=== PATIENT | female | born 1970 | race Caucasian/White ===

== ENCOUNTER 2016-05-14 22:42 | Emergency (ER) | payer OTHER ==
[~2016-05-14] VITALS: Ht 162.5 cm; Wt 62.6 kg
[~2016-05-14 22:42] MED LIST: ACULAR 3 ML3 M1 OPH; ANAPROX DS550 MG PO; ANTIVERT/2525 M1 PO; ATARAX25 MG PO; CATAFLAM50 MG PO; CIPROFLOXACIN500 MG PO; FLEXERIL5 MG PO; IBU800 MG PO; KEFLEX500 MG PO; MOTRIN800 MG PO; Motrin,Rufen800 MG PO; NAPROSYN250 MG PO; NAPROSYN500 MG PO; NKHM; NORCO 325 MG-51 TAB PO; PREDNICOT10 MG PO; PREDNISONE10 MG PO; PREDNISONE20 MG PO; TOBREX OPHTH S2.5 ML OPH; VICODIN 5/500 505 MG PO
[2016-05-14 23:01] VITALS: BP 132/89
[2016-05-15] MEDS ORDERED: ANAPROX DS550 MG PO (00:09)
== END 2016-05-15 00:24 | disposition home or self-care (01) ==
LOC: ED 22:42
DX: H57.8 Other specified disorders of eye and adnexa (principal); H57.12 Ocular pain, left eye; Z88.6 Allergy status to analgesic agent

== ENCOUNTER 2017-07-27 00:10 | Inpatient (IN) | payer OTHER ==
[~2017-07-27] VITALS: Ht 162.6 cm; Wt 64.0 kg
[2017-07-27] VITALS (7 sets, daily range): BP systolic 109–130; BP diastolic 54–81
--- NOTE | ~2017-07-27 | CON ---
[place], [place] REPORT OF CONSULTATION NAME: SAULO OGDEN UNIT #: [id number] ROOM: 412 DOCTOR: PREM SANCHEZJOSE BIRTHDATE: [birth year] DOS: 08/03/2017 HISTORY OF PRESENT ILLNESS: This is a 47-year-old patient who has presented with chief complaint of relentless nausea, vomiting and nonspecific epigastric abdominal pain. The patient underwent endoscopic evaluation, was found to have distal esophageal ulcers and she had gastritis. Antral biopsy was done, H. pylori was not present in the tissue. Distal esophageal ulcers were secondary to reflux and mild gastritis. She was on Protonix; however, she continued to be expressing being nauseated and has not been able to eat. We have discussed this matter with Dr. Ankit Noland on rounds this morning and decided to start her on Reglan 10 mg a.m. and p.m. and due to the fact that she has not had a bowel movement for 7 days, Dulcolax suppository was ordered. We understand that the patient has been on morphine sulfate for expression of pain. On the other hand, she has had biliary scan, which has been with slight delay in dye travelling to gallbladder, otherwise no acute pathology identified. Lab results reviewed. CT scan of the head was obtained. No central causes of nausea was associated with the findings since the study was normal. Electrolytes, potassium of 3.4 has to be addressed with IV potassium that was undertaken and potassium, however, dropped to 2.9 today and this is being addressed. PAST MEDICAL HISTORY: History of enterocolitis and history gastroesophageal reflux. PAST SURGICAL HISTORY: Tubal ligation. SOCIAL HISTORY: Past smoker, rare alcohol consumer. CURRENT MEDICATIONS: Medication list has been at home. Naproxen that has been discontinued and that should be the culprit for her upper GI findings. REVIEW OF SYSTEMS: HEENT: Denies double vision, blurred vision. RESPIRATORY: Denies shortness of breath. CARDIOVASCULAR: Denies chest pain. DIGESTIVE SYSTEM: Constipation, nausea, vomiting, anorexic still. PHYSICAL EXAMINATION: VITAL SIGNS: Stable, nontoxic patient. HEENT: Benign. NECK: Supple No thyromegaly. CHEST: Symmetric anatomy, equal expansion. No wheeze, no rhonchi. HEART: Normal sinus rhythm. No gallop, no murmur. ABDOMEN: Soft. No hepato-organomegaly. Bowel sounds present. No pulsatile mass. EXTREMITIES: No cyanosis, no pedal edema. NEUROLOGIC: Alert, oriented to time, place, person. IMPRESSION: Distal esophageal ulcers, reflux, gastritis. The patient is on Protonix. Naproxen has been removed, which was a part of her home medication. Her HIDA scan has been normal. CT scan records ____ thickening of the colon and [place], [place] REPORT OF CONSULTATION NAME: SAULO OGDEN UNIT #: [id number] ROOM: [facility] DOCTOR: PREM SANCHEZ,JOSE BIRTHDATE: [birth year] consider enterocolitis possibility, but she does not have diarrhea. She does not have signs and symptoms associated. PLAN AND DISCUSSION: We are going to continue with Reglan 10 mg b.i.d., Protonix 40 mg daily, liquid diet, ambulating, avoiding frequency of morphine sulfate and adjustment to perhaps q. 6 hours and only p.r.n., so that we can reduce narcotics from her and Dulcolax suppository, ambulation and clinical reassessment. Gallbladder sludge has been also appreciated in the patient. Workup in progress . If discharged by tomorrow, then recommending to stay on Reglan at least 10 mg a day for the next 3-4 days until her symptoms of nausea is resolved and continuously to stay on Protonix or any substitute PPI and advising to abstain from naproxen intake in future. JOSE AMARO MD CM:CONSTR:REPORT OF CONSULTATION 1428 08/04/17 0206 interface
--- NOTE | ~2017-07-27 | O ---
[place], [place] OPERATIVE NOTE NAME: SAULO OGDEN UNIT #: [id number] ROOM: 412 DOCTOR: JOSE AMARO MD BIRTHDATE: [birth year] DOS: 08/01/2017 GASTROENDOSCOPIC REPORT The patient is a 47-year-old patient who presented with chief complaint of lower abdominal pain, epigastric distress. She was admitted to the ER. Lactic acid was 1.0. BUN and creatinine, liver function tests and lipase, LFTs, all within normal limit. White blood cell was 10, H and H of [address] scan of the abdomen and pelvis was obtained, somewhat limited x-ray, multiple fluid filled small bowel loops, thickening of the descending colon. Possible enterocolitis was suggested. Hemoglobin A1c 5.3. Blood cultures were negative. No growth. OPERATION PERFORMED: Today's procedure part of investigation is panendoscopy plus biopsy. PREMEDICATION: Versed and Diprivan. SCOPE: Olympus forward-viewing gastroscope Q10 video. REPORT: After putting the patient in left lateral position and application of lubricant to the scope, the scope was introduced. Thereafter, under direct visualization, advanced through the length of esophagus without difficulty. Distal esophageal ulcers secondary to reflux and lower third of the esophagus was experienced. Gastric pouch was entered. Gastritis was seen. Antral biopsy obtained. Duodenal bulb, second and third part within normal limits. The patient extubated and tolerated the procedure well. IMPRESSION: Distal esophageal ulcers secondary to reflux, mild gastritis, status post biopsy. PLAN: Protonix 40 mg 1 day and further reassessment of this patient can be as addressed as outpatient. CT scan negative. Labs on records negative. Clinical reassessment. We are going to feed her regular diet to see how she feels. [place], [place] OPERATIVE NOTE NAME: SAULO OGDEN UNIT #: [id number] ROOM: 412 DOCTOR: JOSE AMARO MD BIRTHDATE: [birth year] JOSE AMARO MD CM:OPRECORD:OPERATIVE NOTE 1311 [id number] JOSE AMARO MD 08/01/17 1352 interface
[2017-07-27 00:59] LABS: ALBUMIN 3.6 gm/dl (3.1-4.5); ALKALINE PHOSPHATASE 39 U/L (45-117); BUN 18 mg/dl (7-24); CHLORIDE 105 mmol/L (98-107); LIPASE 252 U/L (73-393); POTASSIUM 3.9 mmol/L (3.5-5.1); SGOT/AST 25 IU/L (3-35); SGPT/ALT 22 U/L (12-78); SODIUM 140 mmol/L (136-145); TOTAL PROTEIN 7.3 gm/dL (6.4-8.2)
[2017-07-27 01:02] LABS: BASO # 0.1 10*3/uL (0.0-0.1); BASO % 0.5 % (0.0-1.0); EOS # 0.2 10*3/uL (0.0-0.4); EOS % 2.1 % (1.0-4.0); HEMATOCRIT 39.2 % (37.0-47.0); HEMOGLOBIN 12.9 g/dl (12.0-16.0); LYMPH # 2.2 10*3/uL (1.3-4.4); LYMPH % 21.7 % (27.0-41.0); MEAN CELL VOLUME 88.1 fl (81.0-99.0); MEAN CORPUSCULAR HGB CONC 32.9 g/dl (33.0-37.0); MEAN PLATELET VOLUME 11.3 fl (9.6-12.3); MONO # 0.7 10*3/uL (0.1-1.0); MONO % 6.6 % (3.0-9.0); NEUT # 7.1 10*3/uL (2.3-7.9); NEUT % 68.5 % (47.0-73.0); PLATELET COUNT AUTOMATED 279 10*3/uL (130-400); RED BLOOD COUNT 4.45 10*6/uL (4.10-5.10); RED CELL DISTRI WIDTH 13.1 % (0-14.5); WHITE BLOOD COUNT 10.3 10*3/uL (4.8-10.8)
[2017-07-27 03:49] LABS: BASO % 0.4 % (0.0-1.0); EOS # 0.1 10*3/uL (0.0-0.4); EOS % 0.8 % (1.0-4.0); HEMATOCRIT 37.7 % (37.0-47.0); HEMOGLOBIN 12.4 g/dl (12.0-16.0); LYMPH % 18.1 % (27.0-41.0); MEAN CELL VOLUME 87.9 fl (81.0-99.0); MEAN CORPUSCULAR HGB 28.9 pg (27.0-31.0); MEAN CORPUSCULAR HGB CONC 32.9 g/dl (33.0-37.0); MEAN PLATELET VOLUME 11.1 fl (9.6-12.3); MONO # 0.6 10*3/uL (0.1-1.0); MONO % 5.1 % (3.0-9.0); NEUT # 8.3 10*3/uL (2.3-7.9); NEUT % 75.3 % (47.0-73.0); PLATELET COUNT AUTOMATED 256 10*3/uL (130-400); RED BLOOD COUNT 4.29 10*6/uL (4.10-5.10); RED CELL DISTRI WIDTH 13.3 % (0-14.5)
[2017-07-27 04:03] LABS: ACT PARTIAL THROMBO TIME 23.2 SECONDS (20.8-31.5); INTERNATIONAL NORM RATIO 0.9 (2.0-3.5)
[2017-07-27 04:05] LABS: ALBUMIN 3.6 gm/dl (3.1-4.5); ALKALINE PHOSPHATASE 31 U/L (45-117); BUN 17 mg/dl (7-24); CHLORIDE 103 mmol/L (98-107); CHOLESTEROL 180 mg/dL (<200); CREATININE 0.71 mg/dL (0.55-1.02); HDL CHOLESTEROL 61 mg/dl (40-60); LDL CHOLESTEROL 108 mg/dL (9-159); PHOSPHOROUS 3.2 mg/dL (2.5-4.9); POTASSIUM 3.8 mmol/L (3.5-5.1); SGOT/AST 17 IU/L (3-35); SGPT/ALT 18 U/L (12-78); SODIUM 138 mmol/L (136-145); TOTAL PROTEIN 6.9 gm/dL (6.4-8.2); TRIGLYCERIDES 54 mg/dl (<150); VLDL CHOLESTEROL 11 mg/dL (6-40)
[2017-07-27 07:51] LABS: VITAMIN D, 25-HYDROXY 24.3 ng/mL (30-100)
[2017-07-27 14:00] LABS: BILIRUBIN NEGATIVE (NEGATIVE); BLOOD TRACE-INTACT (NEGATIVE); CLARITY CLEAR (CLEAR); COLOR YELLOW (YELLOW); GLUCOSE NEGATIVE (NEGATIVE); KETONE NEGATIVE (NEGATIVE); LEUKO ESTERASE NEGATIVE (NEGATIVE); NITRITE NEGATIVE (NEGATIVE); PH 5.5 (5.0-9.0); SPECIFIC GRAVITY 1.015 (1.005-1.030); UROBILINOGEN 0.2 E.U./dl (0.2-1.0)
[2017-07-27 14:15] LABS: BACTERIA TRACE; RBC 0-2 rbc/hpf (0-2); WBC 0-2 wbc/hpf (0-5)
[2017-07-28] VITALS: BP 116/63
[2017-07-28 05:46] LABS: BASO % 0.7 % (0.0-1.0); EOS # 0.2 10*3/uL (0.0-0.4); EOS % 2.9 % (1.0-4.0); HEMATOCRIT 35.1 % (37.0-47.0); HEMOGLOBIN 11.2 g/dl (12.0-16.0); LYMPH # 2.5 10*3/uL (1.3-4.4); LYMPH % 44.9 % (27.0-41.0); MEAN CELL VOLUME 89.8 fl (81.0-99.0); MEAN CORPUSCULAR HGB 28.6 pg (27.0-31.0); MEAN CORPUSCULAR HGB CONC 31.9 g/dl (33.0-37.0); MEAN PLATELET VOLUME 10.9 fl (9.6-12.3); MONO # 0.4 10*3/uL (0.1-1.0); MONO % 7.1 % (3.0-9.0); NEUT # 2.4 10*3/uL (2.3-7.9); NEUT % 44.2 % (47.0-73.0); PLATELET COUNT AUTOMATED 204 10*3/uL (130-400); RED BLOOD COUNT 3.91 10*6/uL (4.10-5.10); RED CELL DISTRI WIDTH 13.2 % (0-14.5); WHITE BLOOD COUNT 5.5 10*3/uL (4.8-10.8)
[2017-07-28 06:05] LABS: BUN 10 mg/dl (7-24); CHLORIDE 110 mmol/L (98-107); CREATININE 0.63 mg/dL (0.55-1.02); POTASSIUM 3.8 mmol/L (3.5-5.1); SODIUM 142 mmol/L (136-145)
[2017-07-28 08:00] VITALS: BP 110/53
[2017-07-28 12:00] VITALS: BP 111/55
[2017-07-28 16:00] VITALS: BP 128/82
[2017-07-28 20:00] VITALS: BP 131/77
[2017-07-29] VITALS: BP 110/69
[2017-07-29 08:00] VITALS: BP 113/61
[2017-07-29 12:00] VITALS: BP 107/58
[2017-07-29 16:00] VITALS: BP 123/65
[2017-07-29 20:00] VITALS: BP 149/62
[2017-07-30] VITALS: BP 118/56
[2017-07-30 06:53] LABS: BASO % 0.4 % (0.0-1.0); EOS # 0.1 10*3/uL (0.0-0.4); EOS % 0.6 % (1.0-4.0); HEMATOCRIT 35.3 % (37.0-47.0); HEMOGLOBIN 11.7 g/dl (12.0-16.0); LYMPH % 21.1 % (27.0-41.0); MEAN CELL VOLUME 87.4 fl (81.0-99.0); MEAN CORPUSCULAR HGB CONC 33.1 g/dl (33.0-37.0); MONO # 0.6 10*3/uL (0.1-1.0); MONO % 6.5 % (3.0-9.0); NEUT # 6.6 10*3/uL (2.3-7.9); NEUT % 71.1 % (47.0-73.0); PLATELET COUNT AUTOMATED 220 10*3/uL (130-400); RED BLOOD COUNT 4.04 10*6/uL (4.10-5.10); RED CELL DISTRI WIDTH 12.9 % (0-14.5); WHITE BLOOD COUNT 9.3 10*3/uL (4.8-10.8)
[2017-07-30 07:28] LABS: BUN 10 mg/dl (7-24); CHLORIDE 108 mmol/L (98-107); CREATININE 0.62 mg/dL (0.55-1.02); POTASSIUM 3.5 mmol/L (3.5-5.1); SODIUM 140 mmol/L (136-145)
[2017-07-30 08:00] VITALS: BP 150/80
[2017-07-30 12:00] VITALS: BP 142/80
[2017-07-30 16:00] VITALS: BP 121/65
[2017-07-30 20:00] VITALS: BP 145/73
[2017-07-31] VITALS: BP 138/70
[2017-07-31 08:00] VITALS: BP 130/76
[2017-07-31 12:00] VITALS: BP 146/77
[2017-07-31 16:00] VITALS: BP 153/82
[2017-07-31 20:00] VITALS: BP 140/70
[2017-07-31 21:09] VITALS: BP 140/70
[2017-08-01] VITALS (8 sets, daily range): BP systolic 137–163; BP diastolic 77–92
[2017-08-01 06:44] LABS: BASO # 0.1 10*3/uL (0.0-0.1); BASO % 0.5 % (0.0-1.0); EOS # 0.1 10*3/uL (0.0-0.4); EOS % 1.4 % (1.0-4.0); HEMOGLOBIN 11.6 g/dl (12.0-16.0); LYMPH # 1.6 10*3/uL (1.3-4.4); LYMPH % 16.9 % (27.0-41.0); MEAN CELL VOLUME 85.9 fl (81.0-99.0); MEAN CORPUSCULAR HGB 29.3 pg (27.0-31.0); MEAN CORPUSCULAR HGB CONC 34.1 g/dl (33.0-37.0); MEAN PLATELET VOLUME 11.6 fl (9.6-12.3); MONO # 0.9 10*3/uL (0.1-1.0); MONO % 9.1 % (3.0-9.0); NEUT # 6.9 10*3/uL (2.3-7.9); NEUT % 71.8 % (47.0-73.0); PLATELET COUNT AUTOMATED 191 10*3/uL (130-400); RED BLOOD COUNT 3.96 10*6/uL (4.10-5.10); WHITE BLOOD COUNT 9.6 10*3/uL (4.8-10.8)
[2017-08-01 06:48] LABS: BUN 3 mg/dl (7-24); CHLORIDE 106 mmol/L (98-107); CREATININE 0.52 mg/dL (0.55-1.02); POTASSIUM 3.3 mmol/L (3.5-5.1); SODIUM 139 mmol/L (136-145)
[2017-08-02] VITALS: BP 139/86
[2017-08-02 08:00] VITALS: BP 158/84
[2017-08-02 09:23] LABS: ALBUMIN 2.7 gm/dl (3.1-4.5); ALKALINE PHOSPHATASE 26 U/L (45-117); BUN 1 mg/dl (7-24); CHLORIDE 104 mmol/L (98-107); POTASSIUM 3.4 mmol/L (3.5-5.1); SGOT/AST 28 IU/L (3-35); SGPT/ALT 41 U/L (12-78); SODIUM 136 mmol/L (136-145); TOTAL PROTEIN 5.4 gm/dL (6.4-8.2)
[2017-08-02 09:25] LABS: CREATININE 0.46 mg/dL (0.55-1.02)
[2017-08-02 12:00] VITALS: BP 160/88
[2017-08-02 17:50] VITALS: BP 172/92
[2017-08-02 20:00] VITALS: BP 152/88
[2017-08-03] VITALS: BP 129/74
[2017-08-03 07:37] LABS: BUN 1 mg/dl (7-24); CHLORIDE 104 mmol/L (98-107); CREATININE 0.55 mg/dL (0.55-1.02); POTASSIUM 2.9 mmol/L (3.5-5.1); SODIUM 141 mmol/L (136-145)
[2017-08-03 08:00] VITALS: BP 160/92
[2017-08-03 12:00] VITALS: BP 150/90
[2017-08-03 16:00] VITALS: BP 154/94
[2017-08-03 20:00] VITALS: BP 110/78
[2017-08-04] VITALS: BP 140/82
[2017-08-04 07:25] LABS: BASO # 0.1 10*3/uL (0.0-0.1); BASO % 0.6 % (0.0-1.0); EOS # 0.6 10*3/uL (0.0-0.4); EOS % 5.6 % (1.0-4.0); HEMOGLOBIN 11.4 g/dl (12.0-16.0); LYMPH # 2.3 10*3/uL (1.3-4.4); LYMPH % 23.9 % (27.0-41.0); MEAN CELL VOLUME 86.3 fl (81.0-99.0); MEAN CORPUSCULAR HGB 28.9 pg (27.0-31.0); MEAN CORPUSCULAR HGB CONC 33.5 g/dl (33.0-37.0); MEAN PLATELET VOLUME 11.7 fl (9.6-12.3); MONO # 0.8 10*3/uL (0.1-1.0); MONO % 8.2 % (3.0-9.0); NEUT % 61.3 % (47.0-73.0); PLATELET COUNT AUTOMATED 217 10*3/uL (130-400); RED BLOOD COUNT 3.94 10*6/uL (4.10-5.10); RED CELL DISTRI WIDTH 13.8 % (0-14.5); WHITE BLOOD COUNT 9.8 10*3/uL (4.8-10.8)
[2017-08-04 07:45] LABS: BUN 5 mg/dl (7-24); CHLORIDE 108 mmol/L (98-107); CREATININE 0.65 mg/dL (0.55-1.02); POTASSIUM 3.6 mmol/L (3.5-5.1); SODIUM 143 mmol/L (136-145)
[2017-08-04 08:00] VITALS: BP 160/84
[2017-08-04 12:00] VITALS: BP 128/71
[2017-08-04 16:00] VITALS: BP 134/84
[2017-08-04 20:00] VITALS: BP 133/86
[2017-08-05] VITALS: BP 148/82
[2017-08-05 07:23] LABS: ALBUMIN 2.7 gm/dl (3.1-4.5); ALKALINE PHOSPHATASE 22 U/L (45-117); BUN 6 mg/dl (7-24); CHLORIDE 102 mmol/L (98-107); CREATININE 0.63 mg/dL (0.55-1.02); POTASSIUM 3.8 mmol/L (3.5-5.1); SGOT/AST 14 IU/L (3-35); SGPT/ALT 24 U/L (12-78); SODIUM 138 mmol/L (136-145); TOTAL PROTEIN 5.4 gm/dL (6.4-8.2)
[2017-08-05 08:00] VITALS: BP 140/82
[2017-08-05] MEDS ORDERED: VITAMIN D-32000 UNIT PO (10:18)
[2017-08-05] MEDS ORDERED: METOCLOPRAM5 MG/1 ML PO (10:18)
[2017-08-05] MEDS ORDERED: ZOFRAN 4 MG ED2 TAB PO (10:18)
== END 2017-08-05 11:45 | disposition home or self-care (01) | DRG 392 ==
LOC: ED 00:10 → EDHOLD 02:51 → 4E 02:51
PROVIDERS: Emergency Medicine Emergency Medical Services; Internal Medicine; Internal Medicine Nephrology; Student in an Organized Health Care Education/Training Program
PROC: 0DB68ZX Excision of Stomach, Via Natural or Artificial Opening Endoscopic, Diagnostic (ICD-10-PCS; principal; 2017-08-01)
DX: K52.9 Noninfective gastroenteritis and colitis, unspecified (principal); K22.10 Ulcer of esophagus without bleeding; R73.9 Hyperglycemia, unspecified; K21.0 Gastro-esophageal reflux disease with esophagitis; K29.70 Gastritis, unspecified, without bleeding; E66.3 Overweight; E55.9 Vitamin D deficiency, unspecified; Z68.24 Body mass index [BMI] 24.0-24.9, adult; Z88.6 Allergy status to analgesic agent; Z98.51 Tubal ligation status; Z87.891 Personal history of nicotine dependence; Z83.3 Family history of diabetes mellitus

== ENCOUNTER → 2017-08-08 | Outpatient (CLI) | payer OTHER ==
[~2017-08-08] MED LIST changes: +METOCLOPRAM5 MG/1 ML PO; +VITAMIN D-32000 UNIT PO; +ZOFRAN 4 MG ED2 TAB PO
== END | disposition home or self-care (01) ==
LOC: RESCLI 01:32
DX: Z09 Encounter for follow-up examination after completed treatment for conditions other than malignant neoplasm (principal); Z12.31 Encounter for screening mammogram for malignant neoplasm of breast; E55.9 Vitamin D deficiency, unspecified; R11.2 Nausea with vomiting, unspecified; R60.0 Localized edema; Z76.89 Persons encountering health services in other specified circumstances; Z87.891 Personal history of nicotine dependence

== ENCOUNTER → 2017-08-21 | Outpatient (CLI) | payer OTHER | END | disposition home or self-care (01) | LOC: MAMMO 08-16 08:40 | DX: Z12.31 Encounter for screening mammogram for malignant neoplasm of breast (principal) ==

== ENCOUNTER → 2017-09-05 | Outpatient (CLI) | payer OTHER | END | disposition home or self-care (01) | LOC: RESCLI 00:26 | DX: K29.70 Gastritis, unspecified, without bleeding (principal); E55.9 Vitamin D deficiency, unspecified; R11.2 Nausea with vomiting, unspecified; K52.9 Noninfective gastroenteritis and colitis, unspecified; K59.00 Constipation, unspecified; R00.1 Bradycardia, unspecified ==

== ENCOUNTER → 2017-09-26 | Day surgery (SDC) | payer OTHER ==
[~2017-09-26] VITALS: Ht 162.5 cm; Wt 62.1 kg
[~2017-09-26] MED LIST changes: +DULCOLAX STOOL100 M1 PO; +MIRALAX POWDER255 G1 PO; +PANTOPRAZOLE SO40 MG PO
--- NOTE | ~2017-09-26 | O ---
[place], [place] OPERATIVE NOTE NAME: SAULO OGDEN UNIT #: [id number] ROOM: DOCTOR: JOSE AMARO MD BIRTHDATE: [birth year] DOS: 09/26/2017 INDICATIONS: The patient is a 47-year-old patient who was presented with chief complaint of abdominal pain, ambiguous, some change in bowel habits. PAST MEDICAL HISTORY: Associated gastritis. FAMILY HISTORY: Cousin with colonic carcinoma. ALLERGIES: No known medication. SOCIAL HISTORY: Nonsmoker, nonalcohol consumer. PAST SURGICAL HISTORY: Tubal ligation and EGD. PROCEDURE: Today's procedure part of investigation is colonoscopy. PREMEDICATION: Propofol. SCOPE: Olympus folding colonoscope 10L video. REPORT: After putting the patient in left lateral position and application of lubricant to rectal pouch and digital examination, scope was introduced; thereafter, under direct visualization, advanced through the length of colon without difficulty. However, there were some technical issues regarding retention of the stool redundancy of colon and extreme tortuosity of colon, However, all of this overcame with appropriate management. Diverticulosis of sigmoid colon was identified. Base of the cecum explored, appendiceal orifice identified. Air was suctioned out. The patient was extubated from ascending, transverse, descending colon, tolerated procedure well. IMPRESSION: Tortuosity of colon. Retention of stool. Redundancy of colon. Diverticulosis. PLAN: High fiber diet. ACTIVITY: Ad judith. FOLLOWUP: Routinely with you in office. Follow-up colonoscopy in 10 years unless patient has symptoms for which follow-up should be sooner. [place], [place] OPERATIVE NOTE NAME: SAULO OGDEN UNIT #: [id number] ROOM: DOCTOR: JOSE AMARO MD BIRTHDATE: [birth year] JOSE AMARO MD CM:OPRECORD:OPERATIVE NOTE 0817 0839 JOSE AMARO MD 10/08/17 1739 interface
[2017-09-26 07:03] VITALS: BP 124/76
[2017-09-26 08:08] VITALS: BP 99/59
[2017-09-26 08:23] VITALS: BP 123/72
[2017-09-26 08:38] VITALS: BP 118/68
== END | disposition home or self-care (01) ==
LOC: SDC 09-20 14:45
DX: K57.30 Diverticulosis of large intestine without perforation or abscess without bleeding (principal); K63.89 Other specified diseases of intestine; Z80.0 Family history of malignant neoplasm of digestive organs; Z98.51 Tubal ligation status; Z79.899 Other long term (current) drug therapy; Z87.891 Personal history of nicotine dependence; Z88.8 Allergy status to other drugs, medicaments and biological substances

== ENCOUNTER → 2017-10-18 | Outpatient (CLI) | payer OTHER | END | disposition home or self-care (01) | LOC: RESCLI 07:57 | DX: E55.9 Vitamin D deficiency, unspecified (principal); R11.2 Nausea with vomiting, unspecified; K25.9 Gastric ulcer, unspecified as acute or chronic, without hemorrhage or perforation; K29.70 Gastritis, unspecified, without bleeding; K59.00 Constipation, unspecified; N63.0 Unspecified lump in unspecified breast; F10.21 Alcohol dependence, in remission; Z87.891 Personal history of nicotine dependence; Z79.899 Other long term (current) drug therapy ==

== ENCOUNTER → 2017-10-24 | Outpatient (CLI) | payer OTHER | END | disposition home or self-care (01) | LOC: US 14:00 | DX: N60.02 Solitary cyst of left breast (principal); N60.01 Solitary cyst of right breast ==

== ENCOUNTER 2017-12-28 14:09 | Inpatient (IN) | payer OTHER ==
[~2017-12-28] VITALS: Ht 162.6 cm; Wt 61.2 kg
--- NOTE | ~2017-12-28 | O ---
[place], [place] OPERATIVE NOTE NAME: SAULO OGDEN [facility] #: [id number] UNIT #: [id number] ROOM: 504 DOCTOR: SEDRICK MCGEE MD BIRTHDATE: [birth year] DOS: 12/29/2017 PREOPERATIVE DIAGNOSIS: Acute appendicitis. POSTOPERATIVE DIAGNOSIS: Acute appendicitis. PROCEDURE: Laparoscopic appendectomy. SURGEON: Sedrick Mcgee MD TOWEL WEAVER: DESIRE. ANESTHESIA: General with endotracheal intubation. INDICATIONS: This is a 47-year-old lady admitted with right lower quadrant pain and a CAT scan that showed appendicitis. It was decided to take the patient to the operating room for the above-mentioned procedure. The procedure and its complications were explained to the patient in detail preoperatively. Complications that were discussed included but were not limited to bleeding, infection, hematoma/seroma/abscess formation, prolonged postoperative pain, damage to lying vital structures and incisional hernia formation. She agreed to proceed. DESCRIPTION OF PROCEDURE: After identifying the patient, the patient was brought to the operating suite and laid in the supine position. After induction of general anesthesia, timeout procedure was called and the left upper extremity was tucked to the patient's side. A Faust catheter was placed as well. The parts were then painted and draped in the usual sterile fashion. An incision was made below the umbilicus in a transverse fashion. The skin and the subcutaneous tissue were incised. The fascia was incised and 2 stay sutures with 0 Vicryl were taken on either side. A 12 mm Dante port was introduced under direct vision and a pneumoperitoneum was created. Under direct vision, a left lower quadrant incision of 10 mm and a 5 mm incision was made in the suprapubic region and appropriate size ports were introduced. The patient was placed in Trendelenburg, right side up position. The cecum and the appendix were identified. The appendix was found to be acutely inflamed. It was grasped with the help of an Endo Erin forceps and dissected away from surrounding structures with blunt and sharp dissection. Thereafter, the mesoappendix and the appendix itself was stapled across with the help of Endo-RHONDA vascular stapler. The specimen was then placed in an EndoCatch bag and removed from the peritoneal cavity and sent for histopathological diagnosis. Hemostasis was confirmed, and saline was used for irrigation. After the saline was sucked away, the appendicular stump was visualized and there was no bleeding seen. At this point, the suprapubic and the left lower quadrant ports were removed under direct vision and there was no bleeding seen. The umbilical port was also removed and the stay sutures were tied together and an additional 0 Vicryl stitch was taken to close the fascia. Thereafter, the edges of the skin were approximated with the help of 4-0 Vicryl in a subcuticular running fashion. There were no complications. Dr. Sedrick Mcgee, the attending surgeon, was present throughout the operating case. The patient tolerated the procedure well and was [place], [place] OPERATIVE NOTE NAME: SAULO OGDEN UNIT #: [id number] ROOM: [facility] DOCTOR: SEDRICK MCGEE MD BIRTHDATE: [birth year] extubated uneventfully and brought back to the recovery room in a stable fashion. Sedrick Mcgee MD CM:OPRECORD:OPERATIVE NOTE 0913 0946 SEDRICK MCGEE MD 12/29/17 0944 interface
[2017-12-28 14:09] VITALS: BP 118/76
[2017-12-28 14:53] LABS: ALBUMIN 3.7 gm/dl (3.1-4.5); ALKALINE PHOSPHATASE 36 U/L (45-117); BUN 18 mg/dl (7-24); CHLORIDE 105 mmol/L (98-107); CREATININE 0.93 mg/dL (0.55-1.02); LIPASE 124 U/L (73-393); POTASSIUM 3.5 mmol/L (3.5-5.1); SGOT/AST 14 IU/L (3-35); SGPT/ALT 17 U/L (12-78); SODIUM 138 mmol/L (136-145); TOTAL PROTEIN 7.1 gm/dL (6.4-8.2)
[2017-12-28 15:06] LABS: BASO % 0.3 % (0.0-1.0); EOS % 0.4 % (1.0-4.0); HEMATOCRIT 34.6 % (37.0-47.0); HEMOGLOBIN 11.4 g/dl (12.0-16.0); LYMPH # 1.7 10*3/uL (1.3-4.4); LYMPH % 15.9 % (27.0-41.0); MEAN CELL VOLUME 87.6 fl (81.0-99.0); MEAN CORPUSCULAR HGB 28.9 pg (27.0-31.0); MEAN CORPUSCULAR HGB CONC 32.9 g/dl (33.0-37.0); MEAN PLATELET VOLUME 10.6 fl (9.6-12.3); MONO # 0.7 10*3/uL (0.1-1.0); MONO % 6.5 % (3.0-9.0); NEUT % 76.7 % (47.0-73.0); PLATELET COUNT AUTOMATED 220 10*3/uL (130-400); RED BLOOD COUNT 3.95 10*6/uL (4.10-5.10); RED CELL DISTRI WIDTH 13.1 % (0-14.5); WHITE BLOOD COUNT 10.5 10*3/uL (4.8-10.8)
[2017-12-28 16:36] LABS: BILIRUBIN NEGATIVE (NEGATIVE); BLOOD TRACE-INTACT (NEGATIVE); CLARITY CLEAR (CLEAR); COLOR YELLOW (YELLOW); GLUCOSE NEGATIVE (NEGATIVE); KETONE NEGATIVE (NEGATIVE); LEUKO ESTERASE NEGATIVE (NEGATIVE); NITRITE NEGATIVE (NEGATIVE); PH 5.5 (5.0-9.0); SPECIFIC GRAVITY <= 1.005 (1.005-1.030); UROBILINOGEN 0.2 E.U./dl (0.2-1.0)
[2017-12-28 16:40] VITALS: BP 113/72
[2017-12-28 17:07] LABS: BACTERIA TRACE; EPITHELIAL CELLS TNTC; MUCOUS 1+; RBC 0-2 rbc/hpf (0-2); WBC 0-2 wbc/hpf (0-5)
[2017-12-28 17:44] VITALS: BP 120/78
[2017-12-28 18:10] VITALS: BP 123/66
[2017-12-28] MEDS ORDERED: CALCIUM CARBON600 M4 PO (18:25)
[2017-12-28] MEDS ORDERED: CARAFATE1 GM/10 ML PO (18:25)
[2017-12-28 20:00] VITALS: BP 114/69
[2017-12-29] VITALS (8 sets, daily range): BP systolic 100–120; BP diastolic 63–75
[2017-12-29 06:25] LABS: BASO % 0.3 % (0.0-1.0); EOS # 0.1 10*3/uL (0.0-0.4); HEMATOCRIT 35.1 % (37.0-47.0); HEMOGLOBIN 11.1 g/dl (12.0-16.0); LYMPH # 1.6 10*3/uL (1.3-4.4); LYMPH % 13.3 % (27.0-41.0); MEAN CORPUSCULAR HGB 28.5 pg (27.0-31.0); MEAN CORPUSCULAR HGB CONC 31.6 g/dl (33.0-37.0); MEAN PLATELET VOLUME 11.6 fl (9.6-12.3); MONO # 0.5 10*3/uL (0.1-1.0); MONO % 4.6 % (3.0-9.0); NEUT # 9.5 10*3/uL (2.3-7.9); NEUT % 80.4 % (47.0-73.0); PLATELET COUNT AUTOMATED 184 10*3/uL (130-400); RED CELL DISTRI WIDTH 13.3 % (0-14.5); WHITE BLOOD COUNT 11.9 10*3/uL (4.8-10.8)
[2017-12-29 06:53] LABS: BUN 15 mg/dl (7-24); CHLORIDE 111 mmol/L (98-107); POTASSIUM 3.3 mmol/L (3.5-5.1); SODIUM 143 mmol/L (136-145)
== END 2017-12-29 15:45 | disposition home or self-care (01) | DRG 343 ==
LOC: ED 14:09 → 5E 16:23 → EDHOLD 16:23 → 5E 18:04
PROVIDERS: Internal Medicine; Nurse Practitioner Family
PROC: 0DTJ4ZZ Resection of Appendix, Percutaneous Endoscopic Approach (ICD-10-PCS; principal; 2017-12-29)
DX: K35.80 Unspecified acute appendicitis (principal); D50.9 Iron deficiency anemia, unspecified; R00.0 Tachycardia, unspecified; K27.9 Peptic ulcer, site unspecified, unspecified as acute or chronic, without hemorrhage or perforation; E87.6 Hypokalemia; Z87.891 Personal history of nicotine dependence; Z87.11 Personal history of peptic ulcer disease; Z82.49 Family history of ischemic heart disease and other diseases of the circulatory system; Z98.51 Tubal ligation status; Z88.6 Allergy status to analgesic agent; Z88.8 Allergy status to other drugs, medicaments and biological substances; Z84.89 Family history of other specified conditions; Z79.899 Other long term (current) drug therapy; Z83.3 Family history of diabetes mellitus

== ENCOUNTER 2018-04-14 | Emergency (ER) | payer OTHER ==
[~2018-04-14] MED LIST changes: +CALCIUM CARBON600 M4 PO; +CARAFATE1 GM/10 ML PO
[2018-04-14] MEDS ORDERED: MEDROL DOSEPAK4 MG PO (17:04)
== END 2018-04-14 17:35 | disposition home or self-care (01) ==
DX: T63.441A Toxic effect of venom of bees, accidental (unintentional), initial encounter (principal); R60.0 Localized edema; Z88.6 Allergy status to analgesic agent; Z79.899 Other long term (current) drug therapy; Z90.49 Acquired absence of other specified parts of digestive tract; Z87.891 Personal history of nicotine dependence; Y92.89 Other specified places as the place of occurrence of the external cause

== ENCOUNTER 2019-03-29 06:26 | Emergency (ER) | payer OTHER ==
[~2019-03-29] VITALS: Ht 162.5 cm; Wt 68.0 kg
[2019-03-29 06:26] VITALS: BP 124/84
[~2019-03-29 06:26] MED LIST changes: +MEDROL DOSEPAK4 MG PO
[2019-03-29 07:05] LABS: BASO # 0.1 10*3/uL (0.0-0.1); BASO % 0.7 % (0.0-1.0); EOS # 0.1 10*3/uL (0.0-0.4); EOS % 1.7 % (1.0-4.0); HEMATOCRIT 36.9 % (37.0-47.0); HEMOGLOBIN 12.3 g/dl (12.0-16.0); LYMPH # 3.8 10*3/uL (1.3-4.4); MEAN CELL VOLUME 89.1 fl (81.0-99.0); MEAN CORPUSCULAR HGB 29.7 pg (27.0-31.0); MEAN CORPUSCULAR HGB CONC 33.3 g/dl (33.0-37.0); MONO # 0.5 10*3/uL (0.1-1.0); MONO % 5.9 % (3.0-9.0); NEUT # 3.6 10*3/uL (2.3-7.9); NEUT % 44.6 % (47.0-73.0); PLATELET COUNT AUTOMATED 262 10*3/uL (130-400); RED BLOOD COUNT 4.14 10*6/uL (4.10-5.10); RED CELL DISTRI WIDTH 13.1 % (0-14.5); WHITE BLOOD COUNT 8.1 10*3/uL (4.8-10.8)
[2019-03-29] MEDS ORDERED: KEFLEX500 M1 PO (08:06)
== END 2019-03-29 08:39 | disposition home or self-care (01) ==
LOC: ED 06:26
PROVIDERS: Emergency Medicine Emergency Medical Services
DX: L03.113 Cellulitis of right upper limb (principal); Z88.6 Allergy status to analgesic agent; Z79.899 Other long term (current) drug therapy; Z87.891 Personal history of nicotine dependence

== ENCOUNTER 2019-06-15 11:17 | Emergency (ER) | payer OTHER ==
[~2019-06-15] VITALS: Ht 162.5 cm; Wt 68.0 kg
[~2019-06-15 11:17] MED LIST changes: +KEFLEX500 M1 PO
[2019-06-15 11:21] VITALS: BP 146/92
[2019-06-15] MEDS ORDERED: KENALOG 0.1%80 GM T (11:30)
[2019-06-15] MEDS ORDERED: CLARITIN10 MG PO (11:30)
== END 2019-06-15 11:31 | disposition home or self-care (01) ==
LOC: ED 11:17
DX: L30.9 Dermatitis, unspecified (principal); Z88.6 Allergy status to analgesic agent; Z79.899 Other long term (current) drug therapy; Z87.891 Personal history of nicotine dependence

== ENCOUNTER 2019-12-10 20:49 | Emergency (ER) | payer OTHER ==
[~2019-12-10] VITALS: Ht 162.5 cm; Wt 64.0 kg
[~2019-12-10 20:49] MED LIST changes: +CLARITIN10 MG PO; +KENALOG 0.1%80 GM T
[2019-12-10 21:10] LABS: BILIRUBIN NEGATIVE; BLOOD NEGATIVE (NEGATIVE); CLARITY CLEAR (CLEAR); COLOR YELLOW (YELLOW); GLUCOSE NEGATIVE; KETONE NEGATIVE; LEUKO ESTERASE TRACE (NEGATIVE); NITRITE NEGATIVE (NEGATIVE); SPECIFIC GRAVITY 1.025 (1.001-1.030)
[2019-12-10 21:15] LABS: BACTERIA 1+; MUCOUS TRACE; RBC 0-2 rbc/hpf (0-2)
[2019-12-10 21:32] LABS: BASO # 0.1 10*3/uL (0.0-0.1); BASO % 0.8 % (0.0-1.0); EOS # 0.1 10*3/uL (0.0-0.4); EOS % 1.7 % (1.0-4.0); HEMATOCRIT 39.3 % (37.0-47.0); LYMPH # 2.8 10*3/uL (1.3-4.4); LYMPH % 39.3 % (27.0-41.0); MEAN CELL VOLUME 87.9 fl (81.0-99.0); MEAN CORPUSCULAR HGB 28.9 pg (27.0-31.0); MEAN CORPUSCULAR HGB CONC 32.8 g/dl (33.0-37.0); MEAN PLATELET VOLUME 10.8 fl (9.6-12.3); MONO # 0.5 10*3/uL (0.1-1.0); MONO % 6.6 % (3.0-9.0); NEUT # 3.7 10*3/uL (2.3-7.9); NEUT % 51.5 % (47.0-73.0); PLATELET COUNT AUTOMATED 279 10*3/uL (130-400); RED BLOOD COUNT 4.47 10*6/uL (4.10-5.10); RED CELL DISTRI WIDTH 12.9 % (0-14.5); WHITE BLOOD COUNT 7.2 10*3/uL (4.8-10.8)
[2019-12-10 21:47] LABS: ALBUMIN 3.6 gm/dl (3.1-4.5); ALKALINE PHOSPHATASE 34 U/L (45-117); BUN 10 mg/dl (7-24); CHLORIDE 106 mmol/L (98-107); CREATININE 0.82 mg/dL (0.55-1.02); LIPASE 125 U/L (73-393); POTASSIUM 3.3 mmol/L (3.5-5.1); SGOT/AST 13 IU/L (3-35); SGPT/ALT 20 U/L (12-78); SODIUM 141 mmol/L (136-145); TOTAL PROTEIN 7.2 gm/dL (6.4-8.2)
[2019-12-10 21:48] VITALS: BP 115/78
[2019-12-10] MEDS ORDERED: MIRALAX POWDER17 G1 PO (23:51)
[2019-12-10] MEDS ORDERED: PRILOSEC20 M1 PO (23:51)
== END 2019-12-11 00:23 | disposition home or self-care (01) ==
LOC: ED 20:49
PROVIDERS: Physician Assistant
DX: K29.70 Gastritis, unspecified, without bleeding (principal); K59.00 Constipation, unspecified; R10.12 Left upper quadrant pain; Z87.891 Personal history of nicotine dependence; Z98.51 Tubal ligation status; Z90.49 Acquired absence of other specified parts of digestive tract; Z79.899 Other long term (current) drug therapy; Z88.5 Allergy status to narcotic agent; Z88.6 Allergy status to analgesic agent; Z87.11 Personal history of peptic ulcer disease

== ENCOUNTER 2020-11-21 19:07 | Emergency (ER) | payer OTHER ==
[~2020-11-21 19:07] MED LIST changes: +MIRALAX POWDER17 G1 PO; +PRILOSEC20 M1 PO
[2020-11-21 19:16] VITALS: BP 146/98
[2020-11-21] MEDS ORDERED: MEDROL DOSEPAK4 MG PO (19:42)
== END 2020-11-21 20:41 | disposition home or self-care (01) ==
LOC: ED 19:07
DX: T63.441A Toxic effect of venom of bees, accidental (unintentional), initial encounter (principal); M79.89 Other specified soft tissue disorders; Z91.030 Bee allergy status; Z88.6 Allergy status to analgesic agent; Z79.899 Other long term (current) drug therapy; Z79.2 Long term (current) use of antibiotics; Z98.51 Tubal ligation status; Z87.891 Personal history of nicotine dependence; Y92.89 Other specified places as the place of occurrence of the external cause

== ENCOUNTER 2021-11-17 19:15 | Emergency (ER) | payer OTHER ==
[~2021-11-17] VITALS: Wt 68.0 kg
[2021-11-17 19:24] VITALS: BP 128/85
[2021-11-17 20:01] LABS: BASO # 0.1 10*3/uL (0.0-0.1); BASO % 0.8 % (0.0-1.0); EOS # 0.1 10*3/uL (0.0-0.4); EOS % 1.8 % (1.0-4.0); HEMATOCRIT 37.7 % (37.0-47.0); LYMPH # 2.3 10*3/uL (1.3-4.4); LYMPH % 34.1 % (27.0-41.0); MEAN CELL VOLUME 89.3 fl (81.0-99.0); MEAN CORPUSCULAR HGB 29.6 pg (27.0-31.0); MEAN CORPUSCULAR HGB CONC 33.2 g/dl (33.0-37.0); MEAN PLATELET VOLUME 10.7 fl (9.6-12.3); MONO # 0.5 10*3/uL (0.1-1.0); MONO % 8.1 % (3.0-9.0); NEUT # 3.7 10*3/uL (2.3-7.9); NEUT % 54.9 % (47.0-73.0); PLATELET COUNT AUTOMATED 280 10*3/uL (130-400); RED BLOOD COUNT 4.22 10*6/uL (4.10-5.10); RED CELL DISTRI WIDTH 14.9 % (0-14.5); WHITE BLOOD COUNT 6.7 10*3/uL (4.8-10.8)
[2021-11-17 20:01] LABS: BILIRUBIN Negative (Negative); BLOOD 2+ (Negative); CLARITY Clear (Clear); COLOR Yellow (Yellow); GLUCOSE Negative (Negative); KETONE Trace (Negative); LEUKO ESTERASE Negative (Negative); NITRITE Negative (Negative); PH 5.5 (4.5-8.0); SPECIFIC GRAVITY 1.025 (1.001-1.030)
[2021-11-17 20:21] LABS: ALKALINE PHOSPHATASE 38 U/L (45-117); BUN 16 mg/dl (7-24); CHLORIDE 108 mmol/L (98-107); CREATININE 0.75 mg/dL (0.55-1.02); LIPASE 212 U/L (73-393); POTASSIUM 3.3 mmol/L (3.5-5.1); SGOT/AST 19 IU/L (3-35); SGPT/ALT 24 U/L (12-78); SODIUM 140 mmol/L (136-145)
[2021-11-17 20:30] LABS: MUCOUS 1+
[2021-11-17] MEDS ORDERED: CIPRO500 MG PO (22:13)
[2021-11-17] MEDS ORDERED: METRONIDAZOLE500 M1 PO (22:13)
== END 2021-11-17 22:13 | disposition home or self-care (01) ==
LOC: ED 19:15
PROVIDERS: Physician Assistant
DX: K52.9 Noninfective gastroenteritis and colitis, unspecified (principal); R10.12 Left upper quadrant pain; Z87.891 Personal history of nicotine dependence; Z98.51 Tubal ligation status; Z79.899 Other long term (current) drug therapy; Z88.5 Allergy status to narcotic agent; Z88.6 Allergy status to analgesic agent

== ENCOUNTER 2022-06-22 08:10 | Emergency (ER) | payer OTHER ==
[~2022-06-22] VITALS: Ht 162.5 cm; Wt 59.0 kg
[~2022-06-22 08:10] MED LIST changes: +CIPRO500 MG PO; +METRONIDAZOLE500 M1 PO
[2022-06-22 08:22] VITALS: BP 142/90
[2022-06-22 09:45] LABS: BILIRUBIN Negative (Negative); BLOOD Negative (Negative); CLARITY Clear (Clear); COLOR Yellow (Yellow); GLUCOSE Negative (Negative); KETONE Trace (Negative); LEUKO ESTERASE Trace (Negative); NITRITE Negative (Negative); PH 5.5 (4.5-8.0); SPECIFIC GRAVITY <= 1.005 (1.001-1.030); UROBILINOGEN 0.2 E.U./dl (0.0-1.0)
[2022-06-22 10:04] LABS: BACTERIA 2+
[2022-06-22] MEDS ORDERED: OMEPRAZOLE40 MG PO (10:35)
[2022-06-22] MEDS ORDERED: CARAFATE1 GM PO (10:35)
== END 2022-06-22 10:44 | disposition home or self-care (01) ==
LOC: ED 08:10
PROVIDERS: Internal Medicine
DX: K29.70 Gastritis, unspecified, without bleeding (principal); Z98.890 Other specified postprocedural states; Z98.51 Tubal ligation status; Z87.891 Personal history of nicotine dependence

== ENCOUNTER 2023-11-21 08:24 | Emergency (ER) | payer OTHER ==
[~2023-11-21] VITALS: Ht 162.5 cm; Wt 68.0 kg
[~2023-11-21 08:24] MED LIST changes: +CARAFATE1 GM PO; +OMEPRAZOLE40 MG PO
[2023-11-21 08:44] VITALS: BP 157/87
[2023-11-21] MEDS ORDERED: Lidocaine Hydrochloride 5 ML AMP IJ ONE (08:50)
[2023-11-21] MEDS ORDERED: Tdap Vaccine 0.5 ML SYR (Adult Vaccine) IM ONE (09:10)
[2023-11-21] MEDS ORDERED: CEPHALEXIN500 M1 PO (09:21)
== END 2023-11-21 10:46 | disposition home or self-care (01) ==
LOC: ED 08:24
DX: S81.811A Laceration without foreign body, right lower leg, initial encounter (principal); Z98.51 Tubal ligation status; Z87.891 Personal history of nicotine dependence; W26.8XXA Contact with other sharp object(s), not elsewhere classified, initial encounter; Y93.89 Activity, other specified; Y92.89 Other specified places as the place of occurrence of the external cause; Y99.8 Other external cause status

== ENCOUNTER 2024-01-13 13:47 | Emergency (ER) | payer OTHER ==
[~2024-01-13] VITALS: Ht 162.5 cm; Wt 65.5 kg
[~2024-01-13 13:47] MED LIST changes: +CEPHALEXIN500 M1 PO
[2024-01-13 14:23] VITALS: BP 133/85
[2024-01-13] MEDS ORDERED: Acetaminophen/Oxycodone 5 MG/325 MG TABLET PO ONE (16:20)
[2024-01-13] MEDS ORDERED: LINZESS145 MC1 PO (18:00)
[2024-01-13] MEDS ORDERED: PEG3350238 GM PO (18:00)
[2024-01-13] MEDS ORDERED: DOCUSATE SOD100 MG PO (18:01)
[2024-01-13] MEDS ORDERED: VITAMIN D350 MCG PO (18:02)
[2024-01-13] MEDS ORDERED: TRAMADOL HCL25 MG PO (18:43)
== END 2024-01-13 18:56 | disposition home or self-care (01) ==
LOC: ED 13:47
DX: M54.50 Low back pain, unspecified (principal); Z88.6 Allergy status to analgesic agent; Z90.49 Acquired absence of other specified parts of digestive tract; Z98.51 Tubal ligation status; Z87.891 Personal history of nicotine dependence; W10.8XXA Fall (on) (from) other stairs and steps, initial encounter

== ENCOUNTER → 2024-01-26 | Outpatient (CLI) | payer OTHER ==
[~2024-01-26] MED LIST changes: +DOCUSATE SOD100 MG PO; +LINZESS145 MC1 PO; +PEG3350238 GM PO; +TRAMADOL HCL25 MG PO; +VITAMIN D350 MCG PO
[2024-01-26 09:17] LABS: BASO # 0.1 10*3/uL (0.0-0.1); EOS # 0.2 10*3/uL (0.0-0.4); EOS % 2.6 % (1.0-4.0); HEMATOCRIT 38.5 % (37.0-47.0); LYMPH # 2.2 10*3/uL (1.3-4.4); LYMPH % 35.1 % (27.0-41.0); MEAN CELL VOLUME 85.7 fl (81.0-99.0); MEAN CORPUSCULAR HGB 27.8 pg (27.0-31.0); MEAN CORPUSCULAR HGB CONC 32.5 g/dl (33.0-37.0); MEAN PLATELET VOLUME 11.3 fl (9.6-12.3); MONO # 0.4 10*3/uL (0.1-1.0); MONO % 6.8 % (3.0-9.0); NEUT # 3.3 10*3/uL (2.3-7.9); NEUT % 54.3 % (47.0-73.0); PLATELET COUNT AUTOMATED 306 10*3/uL (130-400); RED BLOOD COUNT 4.49 10*6/uL (4.10-5.10); RED CELL DISTRI WIDTH 14.6 % (0-14.5); WHITE BLOOD COUNT 6.2 10*3/uL (4.8-10.8)
[2024-01-26 10:12] LABS: ALKALINE PHOSPHATASE 42 U/L (46-116); BUN 16 mg/dl (9-23); CHLORIDE 105 mmol/L (98-107); CHOLESTEROL 192 mg/dL (<200); LDL CHOLESTEROL 122 mg/dL (9-159); POTASSIUM 3.8 mmol/L (3.4-5.1); SGPT/ALT 10 U/L (5-49); TOTAL PROTEIN 6.5 gm/dL (6.0-8.0); TRIGLYCERIDES 60 mg/dl (<150)
== END | disposition home or self-care (01) ==
LOC: LAB 08:22
PROVIDERS: ATTEND Nurse Practitioner
DX: E78.00 Pure hypercholesterolemia, unspecified (principal); K59.00 Constipation, unspecified; E55.9 Vitamin D deficiency, unspecified

== ENCOUNTER 2024-03-29 22:12 | Emergency (ER) | payer OTHER ==
[2024-03-29] MEDS ORDERED: SODIUM CHLORIDE 0.9% 1,000 ML IV ONE (22:20)
[2024-03-29] MEDS ORDERED: Ondansetron Hydrochloride 4 MG/2 ML VIAL IV ONE (22:25)
[2024-03-29 22:32] LABS: BASO # 0.1 10*3/uL (0.0-0.1); BASO % 0.8 % (0.0-1.0); EOS # 0.2 10*3/uL (0.0-0.4); EOS % 2.4 % (1.0-4.0); HEMATOCRIT 36.1 % (37.0-47.0); MEAN CELL VOLUME 86.4 fl (81.0-99.0); MEAN CORPUSCULAR HGB CONC 31.3 g/dl (33.0-37.0); MEAN PLATELET VOLUME 10.4 fl (9.6-12.3); MONO # 0.5 10*3/uL (0.1-1.0); MONO % 6.8 % (3.0-9.0); NEUT # 3.4 10*3/uL (2.3-7.9); NEUT % 51.2 % (47.0-73.0); PLATELET COUNT AUTOMATED 241 10*3/uL (130-400); RED BLOOD COUNT 4.18 10*6/uL (4.10-5.10); RED CELL DISTRI WIDTH 13.6 % (0-14.5); WHITE BLOOD COUNT 6.7 10*3/uL (4.8-10.8)
[2024-03-29 23:06] LABS: ALKALINE PHOSPHATASE 40 U/L (46-116); BUN 15 mg/dl (9-23); CHLORIDE 107 mmol/L (98-107); POTASSIUM 2.9 mmol/L (3.4-5.1); SGPT/ALT 12 U/L (5-49)
[2024-03-29 23:13] LABS: ETHYL ALCOHOL 311.4 mg/dl (<3)
[2024-03-29] MEDS ORDERED: Prochlorperazine Edisylate 10 MG/2 ML VIAL IV ONE (23:35)
[2024-03-30 01:45] LABS: URINE AMPHETAMINES Negative (1000ng/ml); URINE BARBITURATES Negative (200ng/ml); URINE BENZODIAZEPINES Negative (200ng/ml); URINE CANNABINOIDS (THC) Negative (50ng/ml); URINE COCAINE Negative (300ng/ml); URINE METHADONE Negative (300ng/ml); URINE OPIATES Negative (300ng/ml); URINE PHENCYCLIDINE Negative (25ng/ml)
[2024-03-30 06:30] VITALS: BP 99/56
== END 2024-03-30 08:34 | disposition home or self-care (01) ==
LOC: ED 22:12
PROVIDERS: Internal Medicine
DX: F10.129 Alcohol abuse with intoxication, unspecified (principal); R11.10 Vomiting, unspecified; Z79.899 Other long term (current) drug therapy; Z88.6 Allergy status to analgesic agent; Z90.49 Acquired absence of other specified parts of digestive tract; Z87.891 Personal history of nicotine dependence; Y90.6 Blood alcohol level of 120-199 mg/100 ml

== ENCOUNTER 2025-02-28 14:15 | Emergency (ER) | payer OTHER ==
[~2025-02-28] VITALS: Ht 162.5 cm
[2025-02-28 14:37] VITALS: BP 149/86
[2025-02-28] MEDS ORDERED: CEPHALEXIN 500 MG CAP PO ONE (15:10)
[2025-02-28] MEDS ORDERED: Gelatin Sponge 1 EACH SPON T ONE (15:10)
[2025-02-28] MEDS ORDERED: CEPHALEXIN500 M1 PO (15:50)
== END 2025-02-28 16:08 | disposition home or self-care (01) ==
LOC: ED 14:15
DX: S61.201A Unspecified open wound of left index finger without damage to nail, initial encounter (principal); Z88.6 Allergy status to analgesic agent; Z88.8 Allergy status to other drugs, medicaments and biological substances; Z88.5 Allergy status to narcotic agent; Z87.19 Personal history of other diseases of the digestive system; Z87.891 Personal history of nicotine dependence; W23.1XXA Caught, crushed, jammed, or pinched between stationary objects, initial encounter; Y93.89 Activity, other specified; Y92.89 Other specified places as the place of occurrence of the external cause; Y99.8 Other external cause status